=== PATIENT | male | born 1995 | race American Indian/Alaskan Native ===

== ENCOUNTER 2017-05-03 21:39 | Emergency (ER) | payer OTHER ==
--- NOTE | 2017-05-03 23:09 | Emergency Department Report ---
ED Chest Pain HPI - General Chief Complaint: Chest Pain Stated Complaint: CHEST PAIN Time Seen by Provider: 05/03/17 23:07 Source: patient Mode of arrival: Ambulatory Limitations: No Limitations - History of Present Illness Initial Comments: Patient is a 22-year-old male that presented to the emergency room with chest pain 4 days that is worsening. Patient describes the pain as a sharp crushing pain. Patient states she has shortness of breath at times. Patient states he smokes cigarettes and marijuana. 5 cigarettes per day. Patient denies fever and chills. Patient states that he has not seen his primary care. Pain is substernal and does not radiate. She denies anxiety and diaphoresis. MD Complaint: chest pain -: Sudden, days(s) (4 days) Onset: during rest, during exertion Pain Location: substernal, left chest Pain Radiation: none Severity: severe Severity scale (0 -10): 10 Quality: sharp Consistency: constant Improves With: rest Worsens With: movement Treatments Prior to Arrival: none Aspirin use within the Past 7 Days: (0) No - Related Data Previous Rx's Medication Instructions Recorded Last Taken Type methylPREDNISolone [Medrol] 4 mg PO DAILY 6 Days #1 tab.ds.pk 05/04/17 Unknown Rx Allergies Allergy/AdvReac Type Severity Reaction Status Date / Time No Known Allergies Allergy Unverified 09/25/13 19:31 Heart Score - HEART Score History: Slightly suspicious EKG: Normal Age: < 45 Risk factors: No known risk factors Troponin: < normal limit HEART Score: 0 ED Review of Systems ROS: Stated complaint: CHEST PAIN Other details as noted in HPI Constitutional: denies: chills, fever Eyes: denies: eye pain, eye discharge, vision change ENT: denies: ear pain, throat pain Respiratory: shortness of breath. denies: cough, wheezing Cardiovascular: chest pain. denies: palpitations Endocrine: no symptoms reported Gastrointestinal: denies: abdominal pain, nausea, diarrhea Genitourinary: denies: urgency, dysuria Musculoskeletal: denies: back pain, joint swelling, arthralgia Skin: denies: rash, lesions Neurological: denies: headache, weakness, paresthesias Psychiatric: denies: anxiety, depression Hematological/Lymphatic: denies: easy bleeding, easy bruising ED Past Medical Hx - Past Medical History Previous Medical History?: No - Family History Family history: no significant - Social History Smoking Status: Never Smoker Substance Use Type: Marijuana - Medications Home Medications: Home Medications Medication Instructions Recorded Confirmed Last Taken Type methylPREDNISolone [Medrol] 4 mg PO DAILY 6 Days #1 tab.ds.pk 05/04/17 Unknown Rx ED Physical Exam - General Limitations: No Limitations General appearance: alert, in no apparent distress - Head Head exam: Present: atraumatic, normocephalic - Eye Eye exam: Present: normal appearance - ENT ENT exam: Present: mucous membranes moist - Neck Neck exam: Present: normal inspection - Respiratory Respiratory exam: Present: normal lung sounds bilaterally. Absent: respiratory distress - Cardiovascular Cardiovascular Exam: Present: regular rate, normal rhythm, other (chest tenderness noted on palpation which reproduces symptoms. ). Absent: systolic murmur, diastolic murmur, rubs, gallop - GI/Abdominal GI/Abdominal exam: Present: soft, normal bowel sounds - Rectal Rectal exam: Present: deferred - Extremities Exam Extremities exam: Present: normal inspection - Back Exam Back exam: Present: normal inspection - Neurological Exam Neurological exam: Present: alert, oriented X3 - Psychiatric Psychiatric exam: Present: normal affect, normal mood - Skin Skin exam: Present: warm, dry, intact, normal color. Absent: rash ED Course Vital Signs 05/03/17 05/03/17 21:45 23:51 Temperature 98.3 F Pulse Rate 76 62 Respiratory 16 18 Rate Blood Pressure 109/62 Blood Pressure 104/66 [Left] O2 Sat by Pulse 100 100 Oximetry OUMAR score - Oumar Score Age > 65: (0) No Aspirin use within the Past 7 Days: (0) No 3 or more CAD Risk Factors: (0) No 2 or more Angina events in past 24 hrs: (1) Yes Known CAD with more than 50% Stenosis: (0) No Elevated Cardiac Markers: (0) No ST Deviation Greater than 0.5mm: (0) No OUMAR Score: 1 ED Medical Decision Making - Lab Data Result diagrams: 05/03/17 23:16 05/03/17 23:16 - EKG Data -: EKG Interpreted by Me EKG shows normal: sinus rhythm Rate: normal - EKG Data When compared to previous EKG there are: previous EKG unavailable Interpretation: no acute changes, normal EKG - Radiology Data Radiology results: image reviewed Normal limits chest x-ray. All labs reviewed and negative. Patient stable for discharge - Differential Diagnosis cp costochondritis. rib pain. Critical care attestation.: If time is entered above; I have spent that time in minutes in the direct care of this critically ill patient, excluding procedure time. ED Disposition Clinical Impression: Chest pain, Shortness of breath, Costochondritis Disposition: OP ADMIT IP TO THIS HOSP Is pt being admited?: No Does the pt Need Aspirin: No Condition: Stable Instructions: Chest Pain (ED), Costochondritis (ED) Additional Instructions: Patient follow up with PCP within 3-5 days. Patient to rest. Patient to increase water. Patient to return to ER if condition worsens. Patient take prescriptions as directed. Prescriptions: methylPREDNISolone [Medrol] 4 mg PO DAILY 6 Days #1 tab.ds.pk Referrals: AMY BONILLA MD [Primary Care Provider] - 3-5 Days Time of Disposition: 02:40
[2017-05-03 23:38] LABS: Basophils % (Auto) 0.8 % (0.0-1.8); Eosinophils % (Auto) 5.1 % (0.0-4.3); Hematocrit 40.6 % (35.5-45.6); Hemoglobin 13.5 gm/dl (11.8-15.2); Mean Corpuscular HGB Conc 33 % (32-34); Mean Corpuscular Hemoglobin 30 pg (28-32); Mean Corpuscular Volume 89 fl (84-94); Platelet Count 274 K/mm3 (140-440); Red Blood Count 4.59 M/mm3 (3.65-5.03); White Blood Count 4.3 K/mm3 (4.5-11.0)
--- NOTE | 2017-05-03 23:43 | XRay Report ---
FINAL REPORT PROCEDURE: XR CHEST ROUTINE 2V TECHNIQUE: PA and lateral chest radiographs were obtained. CPT 89939 HISTORY: Chest pain COMPARISON: No prior studies are available for comparison. FINDINGS: Heart: Normal. Mediastinum/Vessels: Normal. Lungs/Pleural space: Normal. Bony thorax: No acute osseous abnormality. Other: IMPRESSION: Negative examination.
[2017-05-03 23:52] VITALS: BP 104/66
[2017-05-04 00:22] LABS: Creatine Kinase MB 8.4 ng/mL (0.0-4.0)
[2017-05-04 00:23] LABS: Alanine Aminotransferase 19 units/L (7-56); Albumin/Globulin Ratio 1.9 %; Alkaline Phosphatase 47 units/L (35-129); Anion Gap 16 mmol/L; BUN/Creatinine Ratio 9; Blood Urea Nitrogen 6 mg/dL (9-20); Calcium 9.4 mg/dL (8.4-10.2); Carbon Dioxide 28 mmol/L (22-30); Chloride 103.1 mmol/L (98-107); Creatine Kinase 259 units/L (55-170); Glucose 83 mg/dL (75-100); Potassium 4.4 mmol/L (3.6-5.0); Sodium 143 mmol/L (137-145); Total Protein 6.1 g/dL (6.3-8.2)
[2017-05-04 00:51] LABS: Urine Drugs of Abuse Note Disclamer
[2017-05-04 01:02] LABS: Bilirubin,Urine NEG (Negative); Blood,Urine NEG (Negative); Ketones,Urine NEG (Negative); Leukocyte Esterase,Urine NEG (Negative); Mucus,Urine FEW /HPF; Nitrite,Urine NEG (Negative); Protein,Urine <15 mg/dL mg/dL (Negative); RBC,Urine < 1.0 /HPF (0.0-6.0); Urobilinogen,Urine < 2.0 mg/dL (<2.0); WBC,Urine < 1.0 /HPF (0.0-6.0)
== END 2017-05-04 03:08 | disposition admitted as inpatient to this hospital (09) ==
LOC: ED 21:39
DX: M94.0 Chondrocostal junction syndrome [Tietze] (principal); F12.10 Cannabis abuse, uncomplicated
CPT/HCPCS: 36415; 71020; 80053; 80307; 81001; 82550; 82553; 83880; 84484; 85025; 85379; 93005; 93010; 96372; 99284; J2930

== ENCOUNTER 2020-02-06 14:31 | Emergency (ER) | payer SELFPAY ==
--- NOTE | 2020-02-06 17:07 | Emergency Department Report ---
ED General Adult HPI - General Chief complaint: Urogenital-Male Stated complaint: DISCOMFORT WHEN URINATE Time Seen by Provider: 02/06/20 16:10 Source: patient Mode of arrival: Ambulatory Limitations: No Limitations - History of Present Illness Initial comments: 24-year-old -[place] male patient presents with complaints of difficulty urinating and burning urination x4 days. He reports that his urine is dark- colored, but denies any Coca-Cola colored urine, hematuria, testicular pain/swelling, penile discharge, penile lesions, fever/chills/sweats, flank pain, rectal pain, or nausea/vomiting/diarrhea. He rates his current pain as a 6/10 in severity and states he does have lower abdominal pain also. Patient states his symptoms seem to improve with drinking cranberry juice. He states he has not been sexually active in 5 months. He also denies any prior medical history or abnormal bleeding/bruising. - Related Data Previous Rx's Medication Instructions Recorded Last Taken Type methylPREDNISolone [Medrol] 4 mg PO DAILY 6 Days #1 tab.ds.pk 05/04/17 Unknown Rx Sulfamethoxazole/Trimethoprim 1 each PO BID 5 Days #10 tablet 02/06/20 Unknown Rx [Bactrim DS TAB] Allergies Allergy/AdvReac Type Severity Reaction Status Date / Time No Known Allergies Allergy Verified 02/06/20 14:57 ED Review of Systems ROS: Stated complaint: DISCOMFORT WHEN URINATE Other details as noted in HPI Constitutional: denies: chills, diaphoresis, fever, malaise, weakness ENT: denies: throat pain Respiratory: denies: cough, shortness of breath Cardiovascular: denies: chest pain Gastrointestinal: abdominal pain. denies: nausea, vomiting, diarrhea, constipation, hematemesis, melena, hematochezia Genitourinary: dysuria. denies: hematuria, discharge, testicular pain, francesco ticular mass Musculoskeletal: denies: back pain Skin: denies: change in color Neurological: denies: headache Hematological/Lymphatic: denies: easy bleeding, swollen glands ED Past Medical Hx - Past Medical History Previous Medical History?: No - Surgical History Past Surgical History?: No - Social History Smoking Status: Current Every Day Smoker Substance Use Type: None - Medications Home Medications: Home Medications Medication Instructions Recorded Confirmed Last Taken Type methylPREDNISolone [Medrol] 4 mg PO DAILY 6 Days #1 tab.ds.pk 05/04/17 Unknown Rx Sulfamethoxazole/Trimethoprim 1 each PO BID 5 Days #10 tablet 02/06/20 Unknown Rx [Bactrim DS TAB] ED Physical Exam - General Limitations: No Limitations General appearance: alert, in no apparent distress - Head Head exam: Present: atraumatic, normocephalic - Eye Eye exam: Present: normal appearance. Absent: scleral icterus - ENT ENT exam: Present: mucous membranes moist - Neck Neck exam: Present: normal inspection - Respiratory Respiratory exam: Present: normal lung sounds bilaterally. Absent: respiratory distress - Cardiovascular Cardiovascular Exam: Present: regular rate, normal rhythm. Absent: systolic murmur, diastolic murmur, rubs, gallop - GI/Abdominal GI/Abdominal exam: Present: soft, tenderness (Suprapubic), normal bowel sounds. Absent: distended, guarding, rebound, rigid - Extremities Exam Extremities exam: Present: normal inspection, other (No edema noted bilaterally leg) - Back Exam Back exam: Present: normal inspection. Absent: CVA tenderness (R), CVA tenderness (L) - Neurological Exam Neurological exam: Present: alert, oriented X3 - Psychiatric Psychiatric exam: Present: normal affect, normal mood - Skin Skin exam: Present: warm, dry, intact, normal color. Absent: rash, cyanosis, diaphoretic, pallor, ecchymosis ED Course Vital Signs 02/06/20 02/06/20 15:00 19:02 Temperature 98.7 F 98.1 F Pulse Rate 99 H 72 Respiratory 18 18 Rate Blood Pressure 123/71 Blood Pressure 119/71 [Right] O2 Sat by Pulse 97 95 Oximetry ED Medical Decision Making - Lab Data Result diagrams: 02/06/20 17:34 02/06/20 17:34 Lab Results 02/06/20 02/06/20 02/06/20 Range/Units 17:34 17:34 17:36 WBC 5.1 (4.5-11.0) K/mm3 RBC 5.08 H (3.65-5.03) M/mm3 Hgb 15.8 H (11.8-15.2) gm/dl Hct 45.9 H (35.5-45.6) % MCV 90 (84-94) fl MCH 31 (28-32) pg MCHC 35 H (32-34) % RDW 13.1 L (13.2-15.2) % Plt Count 239 (140-440) K/mm3 Lymph % (Auto) 20.0 (13.4-35.0) % Coke % (Auto) 8.2 H (0.0-7.3) % Eos % (Auto) 0.3 (0.0-4.3) % Baso % (Auto) 0.7 (0.0-1.8) % Lymph # 1.0 L (1.2-5.4) K/mm3 Coke # 0.4 (0.0-0.8) K/mm3 Eos # 0.0 (0.0-0.4) K/mm3 Baso # 0.0 (0.0-0.1) K/mm3 Seg Neutrophils % 70.8 H (40.0-70.0) % Seg Neutrophils # 3.6 (1.8-7.7) K/mm3 Sodium 142 (137-145) mmol/L Potassium 4.2 (3.6-5.0) mmol/L Chloride 100.3 (98-107) mmol/L Carbon Dioxide 26 (22-30) mmol/L Anion Gap 20 mmol/L BUN 10 (9-20) mg/dL Creatinine 0.8 (0.8-1.3) mg/dL Estimated GFR > 60 ml/min BUN/Creatinine Ratio 13 % Glucose 92 (75-100) mg/dL Calcium 10.3 H (8.4-10.2) mg/dL Total Bilirubin 0.70 (0.1-1.2) mg/dL AST 15 (5-40) units/L ALT 19 (7-56) units/L Alkaline Phosphatase 49 (35-129) units/L Total Protein 7.3 (6.3-8.2) g/dL Albumin 4.9 (3.9-5) g/dL Albumin/Globulin Ratio 2.0 % Urine Color Straw (Yellow) Urine Turbidity Clear (Clear) Urine pH 8.0 H (5.0-7.0) Ur Specific [place] 1.005 (1.003-1.030) Urine Protein <15 mg/dl (Negative) mg/dL Urine Glucose (UA) Neg (Negative) mg/dL Urine Ketones Neg (Negative) mg/dL Urine Blood Neg (Negative) Urine Nitrite Neg (Negative) Urine Bilirubin Neg (Negative) Urine Urobilinogen < 2.0 (<2.0) mg/dL Ur Leukocyte Esterase Sm (Negative) Urine WBC (Auto) 1.0 (0.0-6.0) /HPF Urine RBC (Auto) < 1.0 (0.0-6.0) /HPF Urine Bacteria (Auto) 1+ (Negative) /HPF - Medical Decision Making 24-year-old -[place] male patient presents with complaints of difficulty urinating and burning urination x4 days. He reports that his urine is dark- colored, but denies any Coca-Cola colored urine, hematuria, testicular pain/swelling, penile discharge, penile lesions, fever/chills/sweats, flank pain, rectal pain, or nausea/vomiting/diarrhea. He rates his current pain as a 6/10 in severity and states he does have lower abdominal pain also. Patient states his symptoms seem to mildly improve with drinking cranberry juice. He states he has not been sexually active in 5 months. He also denies any prior medical history or abnormal bleeding/bruising. No abnormalities are noted on CBC or CMP. UA shows minimal leukocyte Estrace, however no other abnormal findings are noted. Given patient's history of improvement with cranberry juice and increase water intake, suspect possible dehydration or resolving UTI. Patient given a few days of Bactrim. Recommend follow-up with primary care for STI testing and reevaluation. He is well- appearing, his vitals are normal, he is stable for discharge home. Strict return precautions were discussed in detail with patient who verbalized understanding. Critical care attestation.: If time is entered above; I have spent that time in minutes in the direct care of this critically ill patient, excluding procedure time. ED Disposition Clinical Impression: Difficulty urinating, Bacteriuria Disposition: DC-01 TO HOME OR SELFCARE Is pt being admited?: No Condition: Stable Instructions: Urinary Retention in Men (ED), Urinary Tract Infection in Men (ED) Prescriptions: Sulfamethoxazole/Trimethoprim [Bactrim DS TAB] 1 each PO BID 5 Days #10 tablet Referrals: KEVIN SHAW MD [Staff Physician] - 2-3 Days
[2020-02-06 17:43] LABS: Bacteria,Urine 1+ /HPF (Negative); Bilirubin,Urine NEG (Negative); Blood,Urine NEG (Negative); Color,Urine Straw (Yellow); Protein,Urine <15 mg/dL mg/dL (Negative); Urobilinogen,Urine < 2.0 mg/dL (<2.0)
[2020-02-06 17:46] LABS: RBC,Urine < 1.0 /HPF (0.0-6.0)
[2020-02-06 18:22] LABS: Basophils % (Auto) 0.7 % (0.0-1.8); Eosinophils % (Auto) 0.3 % (0.0-4.3); Hematocrit 45.9 % (35.5-45.6); Hemoglobin 15.8 gm/dl (11.8-15.2); Mean Corpuscular HGB Conc 35 % (32-34); Mean Corpuscular Volume 90 fl (84-94); Monocytes # (Auto) 0.4 K/mm3 (0.0-0.8); Monocytes % (Auto) 8.2 % (0.0-7.3); Platelet Count 239 K/mm3 (140-440); Red Blood Count 5.08 M/mm3 (3.65-5.03); Red Cell Distribution Width 13.1 % (13.2-15.2)
[2020-02-06 18:45] LABS: Alanine Aminotransferase 19 units/L (7-56); Albumin 4.9 g/dL (3.9-5); BUN/Creatinine Ratio 13; Blood Urea Nitrogen 10 mg/dL (9-20); Calcium 10.3 mg/dL (8.4-10.2); Hemolysis Index 4
[2020-02-06 19:03] VITALS: BP 119/71
== END 2020-02-06 19:29 | disposition home or self-care (01) ==
LOC: ED 14:31
DX: R82.71 Bacteriuria (principal); F17.200 Nicotine dependence, unspecified, uncomplicated; Z79.899 Other long term (current) drug therapy
CPT/HCPCS: 36415; 80053; 81001; 85025; 87086; 99283